=== PATIENT | female | born 1930 | race Caucasian/White ===

== ENCOUNTER 2017-07-26 12:04 | Inpatient (IN) | payer OTHER ==
[2017-07-26 12:30] LABS: PLATELET COUNT 248 10^3/uL (150-400)
--- NOTE | 2017-07-26 12:33 | EDPHY ---
H & P Stated Complaint: diarrhea for 1 week Time Seen by Provider: 07/26/17 12:06 HPI/ROS: CHIEF COMPLAINT: Diarrhea, generalized weakness HISTORY OF PRESENT ILLNESS: 87-year-old female with dementia presents with diarrhea and generalized weakness. Ongoing diarrhea for 3 weeks, associated with abd cramping. Taking Imodium frequently. Onset of generalized weakness this morning, after an episode of diarrhea. She now feels too weak to walk. 1 episode bloody stool this morning. REVIEW OF SYSTEMS: complete 10 point ROS negative except at noted in the HPI Source: Patient, Family - Personal History Tetanus Vaccine Date: < 10 YEARS - Medical/Surgical History Hx Asthma: No Hx Chronic Respiratory Disease: No Hx Diabetes: No Hx Cardiac Disease: Yes Hx Renal Disease: No Hx Cirrhosis: No Hx Alcoholism: No Hx HIV/AIDS: No Hx Splenectomy or Spleen Trauma: No Other PMH: CVA 2 YEARS AGO, appenectomy, HTN, DEPRESSION, SCIATICA DOWN RIGHT LEG, GI bleed, hyperlipidemia - Social History Smoking Status: Former smoker - Physical Exam Exam: General Appearance: Alert, pleasant Eyes: Pupils equal and round, no conjunctival pallor ENT, Mouth: Mucous membranes moist Neck: Normal inspection Respiratory: Lungs are clear to auscultation Cardiovascular: Regular rate and rhythm Gastrointestinal: Abdomen is soft and nontender Rectal: Brown stool Neurological: A&O, nonfocal, normal gait Skin: Warm and dry Extremities: Normal inspection Psychiatric: Mood and affect normal Constitutional: Initial Vital Signs Temperature (C) 36.4 C 07/26/17 12:18 Heart Rate 60 07/26/17 12:18 Respiratory Rate 16 07/26/17 12:18 Blood Pressure 124/64 H 07/26/17 12:18 O2 Sat (%) 91 L 07/26/17 12:18 O2 Delivery Mode Room Air Allergies/Adverse Reactions: No Known Allergies Allergy (Verified 07/26/17 14:47) Home Medications: Medication Instructions Recorded Clopidogrel Bisulfate [Plavix (*)] 75 mg PO DAILY 01/11/15 Herbals/Supplements -Info Only 1 ea PO AD 01/11/15 Multivitamins [Multivitamin (*)] 1 each PO DAILY 01/11/15 Simvastatin [Zocor] 40 mg PO HS 01/11/15 FLUoxetine [Prozac 10 MG (*)] 10 mg PO DAILY 07/26/17 Medical Decision Making - Diagnostics EKG Interpretation: EKG interpreted by me reveals sinus rhythm, rate 57, LAFB. Interpretation: Abnormal EKG ED Course/Re-evaluation: This patient presents with prolonged diarrhea, now generalized weakness and dehydration. Rectal exam reveals brown stool, negative for occult blood. No evidence of serious GI hemorrhage. 1 L of normal saline given. Continued to feel quite weak and was unable to ambulate. Abdomen remained soft and nontender. Electrolytes reviewed and are unremarkable. The hospitalist service was consulted for admission. Differential Diagnosis: Differential diagnosis includes though is not limited to severe dehydration, severe anemia, GI bleed, diverticulosis, hypoglycemia. - Data Points Laboratory Results: Laboratory Results 07/26/17 12:04 07/26/17 12:04 07/26/17 07/26/17 07/26/17 12:30 12:04 12:04 WBC RBC Hgb Hct MCV MCH MCHC RDW Plt Count MPV Neut % (Auto) Lymph % (Auto) Bracken % (Auto) Eos % (Auto) Baso % (Auto) Nucleat RBC Rel Count Absolute Neuts (auto) Absolute Lymphs (auto) Absolute Monos (auto) Absolute Eos (auto) Absolute Basos (auto) Absolute Nucleated RBC Immature Gran % Immature Gran # Sodium 135 mEq/L mEq/L (135-145) Potassium 5.5 mEq/L H mEq/L (3.3-5.0) Chloride 101 mEq/L mEq/L (97-110) Carbon Dioxide 22 mEq/l mEq/l (22-31) Anion Gap 12 mEq/L mEq/L (8-16) BUN 17 mg/dL mg/dL (7-23) Creatinine 0.7 mg/dL mg/dL (0.6-1.0) Estimated GFR > 60 Glucose 86 mg/dL mg/dL (70-100) Calcium 9.3 mg/dL mg/dL (8.5-10.4) Total Bilirubin 1.0 mg/dL mg/dL (0.1-1.4) Conjugated Bilirubin 0.6 mg/dL H mg/dL (0.0-0.5) Unconjugated Bilirubin 0.4 mg/dL mg/dL (0.0-1.1) AST 41 IU/L IU/L (14-46) ALT 33 IU/L IU/L (9-52) Alkaline Phosphatase 82 IU/L IU/L (38-126) Total Protein 7.0 g/dL g/dL (6.3-8.2) Albumin 4.3 g/dL g/dL (3.5-5.0) Lipase 226 IU/L IU/L (23-300) TSH Pending Specimen Hemolysis 154 Stool Occult Bld Scrn NEGATIVE (NEGATIVE) 07/26/17 12:04 WBC 6.87 10^3/uL 10^3/uL (3.80-9.50) RBC 5.38 10^6/uL H 10^6/uL (4.18-5.33) Hgb 16.0 g/dL g/dL (12.6-16.3) Hct 47.9 % H % (38.0-47.0) MCV 89.0 fL fL (81.5-99.8) MCH 29.7 pg pg (27.9-34.1) MCHC 33.4 g/dL g/dL (32.4-36.7) RDW 13.4 % % (11.5-15.2) Plt Count 248 10^3/uL 10^3/uL (150-400) MPV 9.2 fL fL (8.7-11.7) Neut % (Auto) 74.9 % H % (39.3-74.2) Lymph % (Auto) 16.4 % % (15.0-45.0) Bracken % (Auto) 7.0 % % (4.5-13.0) Eos % (Auto) 0.9 % % (0.6-7.6) Baso % (Auto) 0.7 % % (0.3-1.7) Nucleat RBC Rel Count 0.0 % % (0.0-0.2) Absolute Neuts (auto) 5.14 10^3/uL 10^3/uL (1.70-6.50) Absolute Lymphs (auto) 1.13 10^3/uL 10^3/uL (1.00-3.00) Absolute Monos (auto) 0.48 10^3/uL 10^3/uL (0.30-0.80) Absolute Eos (auto) 0.06 10^3/uL 10^3/uL (0.03-0.40) Absolute Basos (auto) 0.05 10^3/uL 10^3/uL (0.02-0.10) Absolute Nucleated RBC 0.00 10^3/uL 10^3/uL (0-0.01) Immature Gran % 0.1 % % (0.0-1.1) Immature Gran # 0.01 10^3/uL 10^3/uL (0.00-0.10) Sodium Potassium Chloride Carbon Dioxide Anion Gap BUN Creatinine Estimated GFR Glucose Calcium Total Bilirubin Conjugated Bilirubin Unconjugated Bilirubin AST ALT Alkaline Phosphatase Total Protein Albumin Lipase TSH Specimen Hemolysis Stool Occult Bld Scrn Medications Given: Discontinued Medications Sodium Chloride (Ns) 1,000 mls @ 0 mls/hr IV ONCE ONE; Wide Open PRN Reason: Protocol Stop: 07/26/17 12:35 Last Admin: 07/26/17 12:40 Dose: 1,000 mls Departure - Departure Disposition: [facility] Inpatient Acute Clinical Impression: Generalized weakness, Dehydration Diarrhea Qualifiers: Diarrhea type: presumed infectious Qualified Code(s): R19.7 - Diarrhea, unspecified Condition: Fair
[2017-07-26] MEDS ORDERED: NS 1,000 ML IV ONE (12:34)
--- NOTE | 2017-07-26 14:19 | PDGENHP ---
History and Physical History and Physical: CC: Weakness due to ongoing diarrhea HISTORY: The patient's comes in complaining of extreme weakness, having difficulty walking today, with some orthostatic symptoms that she thinks is a result of her diarrhea. This patient apparently has been having frequent diarrhea for approximately 3 weeks now, with occasional lower abdominal cramping but no nausea vomiting and no bleeding. She lives in a longterm apartment complex where she eats all of her meals, has not traveled, has not had any outdoor trinh, has not had any unusual foods or fluids or any things that seemed possibly spoiled. Her son has checked with the staff at her apartment complex and there is no one else known to have a similar illness there at this time. She has not started any new medications other than some Imodium. Affect per the son, due to the patient's dementia it sounds like she has probably been taking excessive amounts of Imodium intermittently during the last couple of weeks. It found that she had taken nearly a full box of Imodium over 2 days recently. She has no similar history of any illness like this. There is no one in the family who has any inflammatory bowel disease GI tumors or other illnesses with diarrhea as the future. ROS: A comprehensive 10 system review revealed no other significant findings PAST MEDICAL HISTORY: Dementia Cerebellar stroke; currently taking Plavix and statin Upper GI bleed from gastric ulcers caused by nonsteroidal anti-inflammatories, required transfusion Syncope Depression Sciatica with lumbosacral steroid injections FAMILY MEDICAL HISTORY: Sister with arrhythmias and aortic rupture SOCIAL HISTORY: Lives alone in a independent living apartment locally here in [place]. Eats all of her meals there. She is normally quite active, has a dog that she walks daily. Per the patient's son who is here at the bedside with her she is very good in conversation, very bright keeps up with many topics, however is suffering from moderately advanced dementia and does not remember conversations that she has had just a couple minutes ago. Prior to this illness it does not sound like falls or an issue. Former tobacco smoker, has been a user of marijuana Rare alcohol use MEDICATIONS: The patients list has been reconciled by our clinical pharmacist in the EMR. I have reviewed the list and ordered appropriate medicines. PHYSICAL EXAMINATION: Vital Signs: All stable without fever Air Crew Member: Sinus Examination: General: alert, oriented, normally conversant, relaxed Skin: warm, dry, good color, no rash, but with slightly decreased turgor HEENT: normal Neck: no mass or jvd Resps: relaxed Lungs: clear breath sounds Heart: regular, no murmur Abdomen: soft, nondistended, nontender, +BS, no mass Upper Extremities: normal Lower Extremities: no edema, warm No Bleeding or bruising Neurologic: normal speech/language, normal imaging assistant, no focal weakness IV site: looks normal LABORATORY DATA: CBC shows likely evidence of mild hemoconcentration, metabolic panel remarkable for potassium of 5.5 otherwise normal and a normal lipase RADIOLOGY STUDIES: None done at this time 12 LEAD EKG: Not done at this time ASSESSMENT: # weakness and inability to ambulate safely due to dehydration / high fall risk # hyperkalemia # ongoing painless diarrhea without blood for approximately 3 weeks without obvious exposures # dementia, resulting in what sounds like probably inappropriate excessive use of Imodium recently PLANS: -observation overnight, but if she does not recover to safe ambulation or of more complicated issues arise may need to changed inpatient -continue IV hydration; check orthostatic vital signs daily -stool studies to assess for possible viral or other cause of her illness -check TSH to make sure this is not hyperthyroidism causing the diarrhea, though she has no other symptoms of that at present -fall risk precautions -repeat potassium in the morning -no cor per the patient's previous wishes -social work consult, may need home health care upon discharge; her son is here at the bedside today, but he will be most out of town. Apparently there is a daughter who is traveling but supposed to arrive tonight or tomorrow back in town and she is the 1 who takes care of most of the patient's medical issues I have reviewed the patient's case in detail with Dr. Paulina Bah I have reviewed the patient's past medical records as part of this assessment, including records from multiple previous hospitalizations here
--- NOTE | 2017-07-26 14:42 | CPEKG ---
Heart Rate: 57 RR Interval: 1053 P-R Interval: 176 QRSD Interval: 86 QT Interval: 456 QTC Interval: 444 P Hana: 38 QRS Hana: -53 T Wave Hana: 58 EKG Severity - ABNORMAL ECG - EKG Impression: SINUS RHYTHM EKG Impression: ATRIAL PREMATURE COMPLEX EKG Impression: LEFT ANTERIOR FASCICULAR BLOCK Electronically Signed By: Paulina Bah 26-Jul-2017 15:19:09
[2017-07-26] MEDS ORDERED: ONDANSETRON DISINTEGRATING 4 MG TAB PO PRN (15:14)
[2017-07-26] MEDS ORDERED: ACETAMINOPHEN 325 MG TAB PO PRN (15:14)
[2017-07-26] MEDS ORDERED: ONDANSETRON 4 MG/2 ML VIAL IVP PRN (15:14)
[2017-07-26] MEDS: ATORVASTATIN CALCIUM 20 MG TAB PO SCH (21:16)
[2017-07-27] MEDS: NS 1,000 ML IV SCH ×2 (05:29→19:50)
[2017-07-27] MEDS: ENOXAPARIN 40 MG/0.4 ML SYR SC SCH (08:58)
[2017-07-27] MEDS: MULTIVITAMINS 1 EACH TAB PO SCH (08:58)
[2017-07-27] MEDS: FLUoxetine 10 MG CAP PO SCH (08:58)
[2017-07-27] MEDS: CLOPIDOGREL BISULFATE 75 MG TAB PO SCH (08:58)
--- NOTE | 2017-07-27 10:49 | HOSPPROG ---
Hospitalist Progress Note Assessment/Plan: #Dehydration #Gait instability and weakness #Dementia #Diarrhea, none currently -GI PCR negative -TSH unremarkable Plan: She needs more IVF, will provide additional PT/OT to eval Speech to perform cognitive eval Change to inpatient May need SNF, currently lives alone in independent living check UA/UCx Lovenox for DVT proph Subjective: no complaints. no overnight events. sleeping. feels tired. Objective: Vital Signs Temp Pulse Resp BP Pulse Ox 36.6 C 60 16 119/69 91 L 07/27/17 09:03 07/27/17 09:03 07/27/17 09:03 07/27/17 09:03 07/27/17 09:03 Microbiology 07/26/17 14:20 Gastrointestinal Tract Panel (PCR) - Final Stool No Organism Detected Laboratory Results 07/27/17 05:01 07/26/17 07/27/17 07/28/17 05:59 05:59 05:59 Intake Total 2185 340 Output Total 2 Balance 2183 340 - Physical Exam Constitutional: no apparent distress Eyes: PERRL Ears, Nose, Mouth, Throat: moist mucous membranes, hearing normal, ears appear normal Cardiovascular: regular rate and rhythym, No edema Respiratory: no respiratory distress, no rales or rhonchi, clear to auscultation Gastrointestinal: normoactive bowel sounds, soft, non-tender abdomen Skin: warm Musculoskeletal: generalized weakness Psychiatric: poor insight Lymph, Heme, Immunologic: No petechiae ICD10 Worksheet Patient Problems: Problems Problem Status Onset Dehydration Acute Diarrhea Acute Weakness Acute Episode of syncope Acute GI bleed Acute Upper GI bleed Acute
--- NOTE | 2017-07-27 11:45 | PDMN ---
Medical Necessity Medical necessity: C/M review: Patient meets INPT criteria under [facility] Dehydration, Neurology GRG (Generalized muscle weakness): Acute and persistent dehydration, gait instability, generalized muscle weakness, diarrhea - none currently requiring planned UA / urine culture, ongoing IV NS 100 ml/hr./ infusion x 2 bags with re -evaluation 07/28/2017, acute inpt PT/OT/ST, comorbid history of diarrhea x 3 weeks prior to this admission, dementia, history of cerebellar stroke on Plavix and statin, upper GI bleed from gastic ulcers caused by NSAIDS - required transfusion, syncope, depression sciatica with lumbosacral steroid injections. MD anticipates > 2 MN LOS for ongoing med nec for eval and TX of above. Patient is Medicare Advantage which follows guidelines CMS puts forth.
--- NOTE | 2017-07-27 12:26 | ASMTCMCOM ---
CM Note CM Note Notes: CM reviewed Pt's record for D/C planning. Pt is an 87 y/o female c/o diarreha, extreme weakness and difficulty walking.. She's been having the diareha for approx 3 weeks. She is attributing her weakness with her diareha. She resides independently in a nursing home apartment complex. Per son, due to the PT's dementia it sounds like she has probably taken excessive amounts of Immodium intermittenly over the past 2 weeks. Her son is Karthikeyan at [phone]. Her daughter is Lorraine at [phone].PT, OT and speech evals have been ordered. CM will follow to identify D/C needs. D/C Plan: TBD Date Signed: 07/27/2017 12:25 PM Electronically Signed By:Jeanna Fernandez
[2017-07-27] MEDS: ATORVASTATIN CALCIUM 20 MG TAB PO SCH (19:51)
[2017-07-28] MEDS: FLUoxetine 10 MG CAP PO SCH (09:42)
[2017-07-28] MEDS: MULTIVITAMINS 1 EACH TAB PO SCH (09:42)
[2017-07-28] MEDS: CLOPIDOGREL BISULFATE 75 MG TAB PO SCH (09:42)
[2017-07-28] MEDS: ENOXAPARIN 40 MG/0.4 ML SYR SC SCH (09:42)
--- NOTE | 2017-07-28 13:22 | HOSPPROG ---
Hospitalist Progress Note Assessment/Plan: #Fatigue #Cough, Acute Bronchitis #Dehydration #Gait instability and weakness #Dementia #Diarrhea, none currently -GI PCR negative -TSH unremarkable Plan: Prednisone and nebs, to start today PT/OT, pending Hold off on further IVF, encourage good PO intake Speech to perform cognitive eval Cont inpatient May need SNF, currently lives alone in independent living. concern for home safety Lovenox for DVT proph Subjective: + cough, still feels fatigued. no cp or sob. afebrile. no urianry sx 's . Objective: Vital Signs Temp Pulse Resp BP Pulse Ox 36.9 C 69 17 97/68 L 93 07/28/17 09:14 07/28/17 09:14 07/28/17 09:14 07/28/17 09:14 07/28/17 09:14 07/27/17 07/28/17 07/29/17 05:59 05:59 05:59 Intake Total 659 1155 Balance 659 1155 - Physical Exam Constitutional: no apparent distress Eyes: PERRL, EOMI Ears, Nose, Mouth, Throat: moist mucous membranes, No dry mucous membranes Cardiovascular: regular rate and rhythym, No edema Respiratory: expiratory wheeze Gastrointestinal: normoactive bowel sounds, soft, non-tender abdomen Genitourinary: no bladder fullness Skin: warm Musculoskeletal: generalized weakness Neurologic: AAOx3 Psychiatric: interacting appropriately, not anxious, not encephalopathic Lymph, Heme, Immunologic: No petechiae ICD10 Worksheet Patient Problems: Problems Problem Status Onset Dehydration Acute Diarrhea Acute Weakness Acute Episode of syncope Acute GI bleed Acute Upper GI bleed Acute
[2017-07-28] MEDS: predniSONE 20 MG TAB PO SCH (14:05)
[2017-07-28] MEDS: ALBUTEROL 3 ML DEYVIAL IH SCH ×2 (15:10→21:40)
[2017-07-28] MEDS: ATORVASTATIN CALCIUM 20 MG TAB PO SCH (19:40)
[2017-07-29] MEDS: ALBUTEROL 3 ML DEYVIAL IH SCH ×2 (06:01→11:02)
[2017-07-29 09:00] VITALS: BP 125/68
[2017-07-29] MEDS: FLUoxetine 10 MG CAP PO SCH (09:01)
[2017-07-29] MEDS: CLOPIDOGREL BISULFATE 75 MG TAB PO SCH (09:01)
[2017-07-29] MEDS: MULTIVITAMINS 1 EACH TAB PO SCH (09:02)
[2017-07-29] MEDS: predniSONE 20 MG TAB PO SCH (09:02)
[2017-07-29] MEDS: ENOXAPARIN 40 MG/0.4 ML SYR SC SCH (09:04)
--- NOTE | 2017-07-29 11:08 | PDIAF ---
- Diagnosis Diagnosis: weakness, acute bronchitis, dehydration Code Status: Do Not Resuscitate - Medication Management Discharge Medications: Medications to Continue on Transfer Clopidogrel Bisulfate [Plavix (*)] 75 mg PO DAILY 01/11/15 [Last Taken 07/26/17] Herbals/Supplements -Info Only 1 ea PO AD 01/11/15 [Last Taken 11/02/15] Multivitamins [Multivitamin (*)] 1 each PO DAILY 01/11/15 [Last Taken 11/10/15] Simvastatin [Zocor] 40 mg PO HS 01/11/15 [Last Taken 11/09/15] FLUoxetine [Prozac 10 MG (*)] 10 mg PO DAILY 07/26/17 [Last Taken Unknown] predniSONE 40 mg PO DAILY #4 tablet 07/29/17 [Last Taken Unknown] Discharge Medications: Refer to the Discharge Home Medication list for PRN reason. - Orders Services needed: Registered Nurse, Physical Therapy Isolation Type: None Diet Recommendation: no restrictions on diet Diet Texture: Regular Texture Diet Additional Instructions: followup with pcp 1 week - Follow Up Care Current Providers and Referrals: Patient,NotPresent [Unknown] - As per Instructions
--- NOTE | 2017-07-29 11:15 | ASMTCMCOM ---
CM Note CM Note Notes: Spoke to daughter and she is willing to accept her mother to stay with her. [facility] through [employer], interagency final orders sent via allscripts. Daughter is to come pick patient up, CM available should other needs arise. Plan: To daughters home with [facility]. Date Signed: 07/29/2017 11:14 AM Electronically Signed By:Ebony Titus RN
--- NOTE | 2017-07-29 11:48 | GDS ---
[f rep st] DISCHARGE SUMMARY DISCHARGE DIAGNOSES: 1. Fatigue and failure to thrive. 2. Cough. 3. Dehydration. 4. Gait instability and weakness. 5. Dementia. 6. Diarrhea. CONSULTANTS: None. HOSPITAL COURSE: Failure to thrive, likely multifactorial in the setting of dehydration and acute br onchitis: The patient was admitted to the hospital where she has been started on prednisone. On day of discharge, she appears to be improving. senior living facility placement was offered. But the patient and family have opted for her to go home with her daughter, as well as home health. PHYSICAL EXAMINATION: VITAL SIGNS: On day of discharge, blood pressure 125/68, pulse of 60 respirat ory rate 16, O2 saturation 91% on room air. Temperature afebrile. GENERAL: In no acute distress. HEART: S1, S2. LUNGS: Clear. No wheezes, rales, or rhonchi. Normal respiratory effort. ABDOMEN: Soft, nontender, nondistended. No guarding or rebound tenderness. Normoactive bowel sounds. EXTR EMITIES: No clubbing or cyanosis. NEURO: Cranial nerves 2-12 grossly intact. No focal, motor, or sensory deficits. DIAGNOSTICS: Stool pathogen panel was negative. DISCHARGE MEDICATIONS: Please refer to discharge medication reconciliation in [facility] for full deta ils. Below is a preliminary list: New medications on hospital discharge: Prednisone to complete 5 days of treatment. All other home m edications were continued at her usual home dosages. DISCHARGE INSTRUCTIONS: The patient will be discharged with home health. She should follow up with her primary care provider for routine hospital followup in the next week. /[id number]/MODL
--- NOTE | 2017-07-29 15:32 | ASDISCHSUM ---
Discharge Information Plan Status:Home with Home Health Medically Cleared to Leave:07/29/2017 Discharge Date:07/29/2017 12:35 PM CM D/C Disposition:Home Health Service ADT D/C Disposition:Home Health Service Projected Discharge Date:07/29/2017 11:00 AM Transportation at D/C:Family Discharge Delay Reason: Follow-Up Date:07/29/2017 11:00 AM Discharge Slot: Final Diagnosis: Placement Information Referral Type:*Home Health Care Services Referral ID:[id number] Provider Name:[facility] Address 1:[address] Address 2: City:[place] Selection Factors: State:[place] Patient Contact Information Contact Name:YUMIKO Relationship:Daughter Address: Work Phone: City: [facility] Phone: State/[facility] Code: Email: Financial Information Financial Class:Medicare Advantage Plans Primary Plan Desc:[employer] ADV IP Primary Plan Number:[id number] Secondary Plan Desc: Secondary Plan Number: Assessment Information [facility] CM Progress Note CM Note CM Note Notes: CM reviewed Pt's record for D/C planning. Pt is an 87 y/o female c/o diarreha, extreme weakness and difficulty walking.. She's been having the diareha for approx 3 weeks. She is attributing her weakness with her diareha. She resides independently in a skilled nursing apartment complex. Per son, due to the PT's dementia it sounds like she has probably taken excessive amounts of Immodium intermittenly over the past 2 weeks. Her son is Karthikeyan at [phone]. Her daughter is Lorraine at [phone].PT, OT and speech evals have been ordered. CM will follow to identify D/C needs. D/C Plan: TBD Date Signed: 07/27/2017 12:25 PM Electronically Signed By:Jeanna Fernandez [facility] CM Progress Note CM Note CM Note Notes: Spoke to daughter and she is willing to accept her mother to stay with her. [facility] through [employer], interagency final orders sent via [employer]. Daughter is to come pick patient up, CM available should other needs arise. Plan: To daughters home with [facility]. Date Signed: 07/29/2017 11:14 AM Electronically Signed By:Ebony Titus RN Intervention Information Intervention Type:*IM-Signed Date of Service:07/29/2017 11:24 AM Patient Type:Inpatient Staff Member:Daniella Brooks Hours: Discipline: Severity: Comment:
== END 2017-07-29 12:35 | disposition home health service (06) | DRG 641 ==
LOC: EDUNIT# → F1N 15:43 → OBSVTOIN 07-27 10:46
PROVIDERS: ADMIT Internal Medicine; ATTEND Internal Medicine
DX: E86.0 Dehydration (principal); J20.9 Acute bronchitis, unspecified; R19.7 Diarrhea, unspecified; R62.7 Adult failure to thrive; F03.90 Unspecified dementia, unspecified severity, without behavioral disturbance, psychotic disturbance, mood disturbance, and anxiety; R53.83 Other fatigue; R53.1 Weakness; R26.89 Other abnormalities of gait and mobility; E78.5 Hyperlipidemia, unspecified; I10 Essential (primary) hypertension
CPT/HCPCS: 92523-GN; 97116-GP; 97161-GP; 97165-GO; G0378; G8978-GP-CI; G8979-GP-CI; G8980-GP-CI; G8987-GO-CI; G8988-GO-CI; G9168-GN-CK; G9169-GN-CJ; J1650; J7512; J7613

== ENCOUNTER 2017-10-25 19:36 | Emergency (ER) | payer OTHER ==
--- NOTE | 2017-10-25 19:39 | EDPHY ---
HPI/HX/ROS/PE/MDM Narrative: CHIEF COMPLAINT: "I have a rib out I think" HPI: The patient is an 87 y/o female with a history of a cerebellar stroke and dementia arriving via EMS from her assisted living facility complaining of right rib pain underneath her breast onset 3-4 hours ago. Her pain is much worse with movement and palpation. She cannot identify any precipitating causes and denies trauma or illness. No dyspnea, fever, cough. She had a normal prehospital EKG and received 100mcg IV Fentanyl en route for pain. No aspirin given. REVIEW OF SYSTEMS: A comprehensive 10 system review of systems is otherwise negative aside from elements mentioned in the history of present illness. PMH: Dementia, cerebellar stroke on Plavix and statin, upper GI bleed from gastric ulcers caused by NSAIDs and requiring transfusion, syncope, depression, sciatica SOCIAL HISTORY: [employer]. Retired. Prior medical records reviewed including admission 07/26/17 for diarrhea and weakness. PHYSICAL EXAM: General:Patient is alert, in no acute distress. ENT:Eyes are normal to inspection. ENT inspection normal. Neck: Normal inspection. Full range of motion. Respiratory:No respiratory distress. Breath sounds normal bilaterally. Chest: Point tenderness to right anterior chest underneath breast. Cardiovascular: Regular rate and rhythm. Strong peripheral pulses. Normal cap refill. Abdomen:The abdomen is nontender to palpation. There are no peritoneal signs. Back: Normal to inspection. No tenderness to palpation. Skin: Normal color. No rash. Warm and dry. Extremities: Normal appearance. Full range of motion. Neuro: Oriented x3. Normal motor function. Normal sensory function. ED Course: 87 y/o female who presents with a 3-4-hour history of atraumatic right rib pain without other associated symptoms. She has point tenderness along her right anterior ribs just underneath her breast. Doubt cardiac etiology due to reproducible nature of pain, but will perform POC troponin and EKG to decrease suspicion of this. IV, labs, 500mL IV NS ordered. Chest x-ray: cardiomegaly The 12 lead EKG was interpreted by myself. See hard copy and/or "tracemaster" electronic copy for interpretation. CBC, CHEM unremarkable. D-dimer elevated 0.94. Chest CTA ordered. Chest CTA: no PE, possible buckle fracture of indeterminant age. MDM: This patient presents with isolated reproducible right anterior chest wall pain. There are no signs of zoster. The patient denies trauma and there are no external signs of injury. CTPE is negative, but radiologist notes small buckle fracture of unknown age of two anterior ribs which corresponds to area of pain. Given that this is the same area, it is possible that this represents acute fracture, but mechanism is unknown and there is no sign of other injury. Regardless, I think patient is safe for discharge home with close PCP follow-up. - Data Points Imaging Results: Imaging Impressions Chest X-Ray 10/25/17 19:40 Impression: 1. Cardiomegaly. 2. No pulmonary edema or definite pneumonia. 3. No pneumothorax. Chest/Thorax CTA 10/25/17 21:02 Impression: 1. No definite pulmonary thromboemboli. 2. No aortic aneurysm or dissection. 3. Atherosclerotic aorta. 4. Mild cardiomegaly. 5. Small hiatal hernia. 6. Pleuroparenchymal scarring lung bases, without acute pneumonia. 7. Questionable minimal nondisplaced fracture of the anterior aspect of the right 6th rib. 8. Old moderate T3 and T4 compression fractures and degenerative lower thoracic spine. Consider DEXA bone scan evaluation for osteoporosis, if clinically indicated. Findings and recommendations discussed with Emergency Department physician, Donald Stephens M.D., at 2201 hours, on October 25, 2017. Final report concurs with initial preliminary interpretation. Imaging: I viewed and interpreted images myself Laboratory Results: Laboratory Results 10/25/17 20:00 10/25/17 20:00 10/25/17 10/25/17 10/25/17 20:03 20:00 20:00 WBC RBC Hgb Hct MCV MCH MCHC RDW Plt Count MPV Neut % (Auto) Lymph % (Auto) Briscoe % (Auto) Eos % (Auto) Baso % (Auto) Nucleat RBC Rel Count Absolute Neuts (auto) Absolute Lymphs (auto) Absolute Monos (auto) Absolute Eos (auto) Absolute Basos (auto) Absolute Nucleated RBC Immature Gran % Immature Gran # D-Dimer 0.94 ug/mLFEU H ug/mLFEU (0.00-0.50) Sodium 133 mEq/L L mEq/L (135-145) Potassium 3.9 mEq/L mEq/L (3.3-5.0) Chloride 100 mEq/L mEq/L (97-110) Carbon Dioxide 25 mEq/l mEq/l (22-31) Anion Gap 8 mEq/L mEq/L (8-16) BUN 24 mg/dL H mg/dL (7-23) Creatinine 0.8 mg/dL mg/dL (0.6-1.0) Estimated GFR > 60 Glucose 121 mg/dL H mg/dL (70-100) Calcium 8.6 mg/dL mg/dL (8.5-10.4) POC Troponin I 0.00 ng/mL ng/mL (0.00-0.08) 10/25/17 20:00 WBC 7.11 10^3/uL 10^3/uL (3.80-9.50) RBC 4.60 10^6/uL 10^6/uL (4.18-5.33) Hgb 13.5 g/dL g/dL (12.6-16.3) Hct 40.5 % % (38.0-47.0) MCV 88.0 fL fL (81.5-99.8) MCH 29.3 pg pg (27.9-34.1) MCHC 33.3 g/dL g/dL (32.4-36.7) RDW 13.4 % % (11.5-15.2) Plt Count 203 10^3/uL 10^3/uL (150-400) MPV 8.7 fL fL (8.7-11.7) Neut % (Auto) 76.1 % H % (39.3-74.2) Lymph % (Auto) 9.6 % L % (15.0-45.0) Briscoe % (Auto) 9.7 % % (4.5-13.0) Eos % (Auto) 3.4 % % (0.6-7.6) Baso % (Auto) 0.6 % % (0.3-1.7) Nucleat RBC Rel Count 0.0 % % (0.0-0.2) Absolute Neuts (auto) 5.42 10^3/uL 10^3/uL (1.70-6.50) Absolute Lymphs (auto) 0.68 10^3/uL L 10^3/uL (1.00-3.00) Absolute Monos (auto) 0.69 10^3/uL 10^3/uL (0.30-0.80) Absolute Eos (auto) 0.24 10^3/uL 10^3/uL (0.03-0.40) Absolute Basos (auto) 0.04 10^3/uL 10^3/uL (0.02-0.10) Absolute Nucleated RBC 0.00 10^3/uL 10^3/uL (0-0.01) Immature Gran % 0.6 % % (0.0-1.1) Immature Gran # 0.04 10^3/uL 10^3/uL (0.00-0.10) D-Dimer Sodium Potassium Chloride Carbon Dioxide Anion Gap BUN Creatinine Estimated GFR Glucose Calcium POC Troponin I Medications Given: Discontinued Medications Sodium Chloride (Ns) 500 mls @ 0 mls/hr IV EDNOW ONE; Wide Open PRN Reason: Protocol Stop: 10/25/17 19:41 Last Admin: 10/25/17 19:58 Dose: 500 mls Point of Care Test Results: Chemistry 10/25/17 20:03 POC Troponin I 0.00 ng/mL ng/mL (0.00-0.08) General Time Seen by Provider: 10/25/17 19:36 Initial Vital Signs: Initial Vital Signs Temperature (C) 36.8 C 10/25/17 19:41 Heart Rate 64 10/25/17 19:41 Respiratory Rate 16 10/25/17 19:41 Blood Pressure 100/63 10/25/17 19:41 O2 Sat (%) 92 10/25/17 19:41 O2 Delivery Mode Room Air Allergies/Adverse Reactions: No Known Allergies Allergy (Verified 10/25/17 19:43) Home Medications: Medication Instructions Recorded Clopidogrel Bisulfate [Plavix (*)] 75 mg PO DAILY 01/11/15 Herbals/Supplements -Info Only 1 ea PO AD 01/11/15 Multivitamins [Multivitamin (*)] 1 each PO DAILY 01/11/15 Simvastatin [Zocor] 40 mg PO HS 01/11/15 FLUoxetine [Prozac 10 MG (*)] 10 mg PO DAILY 07/26/17 Lasix 10/25/17 Departure - Departure Disposition: Home, Routine, Self-Care Clinical Impression: Rib pain on right side Condition: Good Instructions: Rib Contusion (ED) Additional Instructions: Followup with your primary doctor within 72 hours for reevaluation. Use incentive spirometer as directed several times daily. Return to the emergency department for fever, worsening pain, shortness of breath or difficulty breathing, abdominal pain, blood in urine or other concerns. Referrals: Patient,NotPresent [Unknown] - As per Instructions Report Scribed for: Donald Stephens Report Scribed by: Sammie Rodney Date of Report: 10/25/17 Time of Report: 19:57 Physician Review and Approval Statement: Portions of this note were transcribed by an ED scribe. I personally performed the history, physical exam, and medical decision making; and confirm the accuracy of the information in the transcribed note.
[2017-10-25] MEDS ORDERED: NS 500 ML IV ONE (19:40)
[2017-10-25 20:18] LABS: PLATELET COUNT 203 10^3/uL (150-400)
[2017-10-25] MEDS ORDERED: IOPAMIDOL (ISOVUE 370) 100 ML BTL IV ONE (21:23)
[2017-10-25 21:25] VITALS: BP 107/44
--- NOTE | 2017-10-25 21:35 | CPEKG ---
Test Reason : OPEN Blood Pressure : / mmHG Vent. Rate : 075 BPM Atrial Rate : 098 BPM P-R Int : 160 ms QRS Dur : 091 ms QT Int : 396 ms P-R-T Axes : 015 -58 071 degrees QTc Int : 443 ms Sinus rhythm Supraventricular bigeminy Left anterior fascicular block Minimal ST depression, lateral leads Confirmed by Donald Stephens ([id number]) on 10/25/2017 9:34:59 PM Referred By: Confirmed By:Donald Stephens
== END 2017-10-25 22:37 | disposition home or self-care (01) ==
LOC: EDUNIT#
DX: R07.81 Pleurodynia (principal); E86.9 Volume depletion, unspecified
CPT/HCPCS: 71046; 71275; 93005; 96360; 99285; Q9967; 84484-PO